=== PATIENT | female | born 1950 | race Caucasian/White ===

== ENCOUNTER 2017-04-09 08:58 | Emergency (ER) | payer MEDICARE, SELFPAY ==
[2017-04-09 08:59] VITALS: BP 176/100; PULSE 58; RESP 16; TEMP 36.3; O2SAT 95; BMI 27.4
--- NOTE | 2017-04-09 09:06 | RAD_ITS ---
STUDY: X-RAY - LEFT HAND, ATTENTION LEFT FINGER REASON FOR EXAM: Female, 66 years old. Injury to third finger 2 weeks ago. Painful TECHNIQUE: 3 view(s) of the finger were obtained. COMPARISON: None. FINDINGS: No definite evidence for an acute fracture seen. Overall alignment is satisfactory RAD/Finger(s) Min 2 Views IMPRESSION: No evidence for acute fractures Electronically Signed: Mayo Haile, at 9:34 EST Tel , Service support ,
--- NOTE | 2017-04-09 09:50 | ED.VISSUMM ---
- ER Visit Summary Date of Service: 04/09/17 Chief Complaint: [Injury to left middle finger] History of Present Illness: The patient is a 66 F [presents to the emergency department with an injury to her left middle finger that occurred 2 weeks ago. Vision states that she was putting her coat on when she was standing too close to a door jam and accidentally punched a door jam as her coat went on. Patient is right-hand dominant. Patient has been wearing an aluminum splint that she fashioned herself. Patient describes decreased range of motion and painful range of motion with the middle finger.] Physical Examination: [Left hand-patient has tenderness over the proximal phalanx of the middle finger. No obvious deformity. Patient is able to completely extend the digit against resistance. She has pain with flexion and has a difficult time touching her middle finger to her palm. There is no ecchymosis or bruising noted. She is neurovascular intact distally.] Test Results: [X-rays of the left long finger showed no fractures] Emergency Department Course and Treatment: [None] Treatment Plan: [Patient to continue with her aluminum splint for comfort and she will be referred to orthopedics for follow-up. Patient was given a prescription for 12 Adamant for severe pain.] Disposition: [Discharged to home in stable condition] Impression: [Contusion left long finger-cannot rule out ligamentous or soft tissue injury] This note was generated with [employer] dictation software. It may contain incorrect words, spelling, and punctuation that were not noted in review of the chart prior to signing ED Disposition - Plan for ED Patient: Chief Complaint: Upper Extremity Injury Referrals: NOT,DEFINED [Primary Care Provider] -
--- NOTE | 2017-04-09 09:52 | ED.DEP ---
ED Disposition - Plan for ED Patient: Chief Complaint: Upper Extremity Injury Instructions: ED Contusion Finger Prescriptions: Hydrocodone Bitart/Apap 5-325 [[place] 5/325] 1 - 2 tab PO Q4H PRN PRN 3 Days #12 tab PRN Reason: Pain Referrals: NOT,DEFINED [Primary Care Provider] - Keon Meadows MD [STAFF PHYSICIAN] - 5-7 Days
[2017-04-09 09:59] VITALS: BP 145/70; PULSE 52; RESP 15; O2SAT 98
== END 2017-04-09 10:00 | disposition home or self-care (01) ==
LOC: ED 09:58
PROVIDERS: Emergency Provider Emergency Medicine
DX: S60.032D Contusion of left middle finger without damage to nail, subsequent encounter (principal); W23.0XXD Caught, crushed, jammed, or pinched between moving objects, subsequent encounter
CPT/HCPCS: 73140; 99282

== ENCOUNTER 2019-04-04 11:34 | Emergency (ER) | payer MEDICARE, SELFPAY ==
[2019-04-04 11:36] VITALS: BP 137/73; PULSE 68; RESP 19; TEMP 36; O2SAT 99; BMI 30.9
[2019-04-04 11:38] VITALS: BP 137/73; PULSE 68; RESP 19; TEMP 36; O2SAT 99
--- NOTE | 2019-04-04 11:48 | CT_ITS ---
STUDY: CT ABDOMEN AND PELVIS WITH CONTRAST REASON FOR EXAM: Female, 68 years old. RUQ PAIN TODAY RADIATION DOSAGE (If Supplied By Facility): CTDIvol = ( 16.2 ) mGy, DLP = ( 1052.97 ) mGycm CLINICAL HISTORY: 68 years Female, RUQ PAIN TODAY COMPARISON: None TECHNIQUE: A CT scan of the abdomen and pelvis was performed with IV contrast contrast administration. Oral contrast was also administered. Coronal and sagittal reconstruction images were reviewed. This exam was performed according to our departmental dose-optimization program, which includes automated exposure control, adjustment of the mA and/or kV according to patient size and/or use of iterative reconstruction technique. FINDINGS: The lung bases and the base of the heart are normal. The liver is normal.The spleen is normal.The adrenal glands are normal.The head, body, and tail of the pancreas are normal. The right and left kidneys were examined and appear to be normal. Both ureters appear to be normal, and no obstructive uropathy is identified. The abdominal aortal is normal along its course and distribution. No paraortic lymphadenopathy is seen. No abdominal masses or lesions are seen. The patient has had a cholecystectomy. The CT scan of the pelvis was then reviewed. The common iliac vessels, external iliac vessels, and common femoral vessels are normal along their course and distribution No pelvis masses or lesions are seen. The appendix is normal. No pericecal inflammatory reaction is seen. Bone scanning windows of the lumbar spine and pelvis were reviewed in the coronal and sagittal planes and appear to be normal. CT/Abdomen/Pelvis WITH Contrast IMPRESSION: Normal CT scan of the abdomen and pelvis. Electronically Signed: Edgardo Gaming, at 14:01 EST Tel , Service support ,
--- NOTE | 2019-04-04 11:49 | EKG12_ITS ---
Test Reason : ABD PAIN Blood Pressure : / mmHG Vent. Rate : 063 BPM Atrial Rate : 063 BPM P-R Int : 152 ms QRS Dur : 084 ms QT Int : 436 ms P-R-T Axes : 046 009 011 degrees QTc Int : 446 ms Normal sinus rhythm Normal ECG Confirmed by MARCE OVIEDO, TIGRE ([id number]), order editor DASHAWN BYRD ([id number]) on 04/08/2019 8:50:43 AM Referred By: DRISS Confirmed By:IRVING ZHENG MD
--- NOTE | 2019-04-04 11:52 | ED.RN ---
NO OLD EKG
[2019-04-04] MEDS: 0.9% Normal Saline 1,000 ML 125 ML IV (11:59)
[2019-04-04] MEDS: Ondansetron 4 MG/2 ML Vial IV (12:00)
[2019-04-04 12:01] LABS: Absolute Lymphocyte Count 0.37 X10^3/uL (0.83-4.51); Absolute Neutrophil Count 5.9 X10^3/uL (2.0-7.7); Basophil# 0.02 X10^3/uL; Basophil% 0.3 % (0-1); Eosinophil# 0.05 X10^3/uL; Eosinophils% 0.8 % (0-5); Hematocrit 43.2 % (37-47); Lymphocyte # 0.37 X10^3/ul (4.0); Lymphocyte % 5.6 % (19-41); Mean Corp Hgb Conc 32.4 g/dL (32-36); Mean Corpuscular Hgb 30.4 pg (27.0-32.0); Mean Corpuscular Volume 93.9 fL (81-99); Mean Platelet Vol. 11.3 fl (6.2-12.0); NRBC Flagged by Analyzer 0 % (0-5); Neutrophil # 5.93 X10^3/uL (2.7-7.7); POSITIVE DIFFERENTIAL YES; Platelet Count 210 K/mm3 (150-450); RBC Distribution Width CV 12.7 % (11.6-14.6); RBC Distribution Width SD 43.8 fl (35.1-43.9); White Blood Count 6.6 K/mm3 (4.4-11.0)
[2019-04-04 12:08] LABS: Differential Indicated SCAN CRITERIA MET
[2019-04-04 12:19] LABS: AST(SGOT) 19 U/L (15-37); Alanine Aminotransfer ALT/SGPT 32 U/L (13-56); Albumin, Serum 3.6 g/dL (3.2-5.0); Alkaline Phosphatase 68 U/L (45-117); Anion Gap 6 (5-15); BUN 23 mg/dL (7-18); BUN/Creat Ratio 29.8 RATIO (10-20); Chloride 113 mmol/L (98-107); Creatinine, Serum 0.77 mg/dL (0.55-1.02); EST Glomerular Filtration Rate 79 mL/min (>60); Est Glom Filt Rate - Afr Amer 96 mL/min (>60); Estimated Creatinine Clearance 43.18 ml/min; Globulin 3.5 g/dL (2.2-4.2); Glucose 131 mg/dL (74-106); Lipase 31 U/L (73-393); Potassium 3.8 mmol/L (3.5-5.1); Protein, Total 7.1 g/dL (6.4-8.2); Sodium Level 142 mmol/L (136-145)
[2019-04-04 12:40] LABS: Differential Comment SCANNED
[2019-04-04 12:45] LABS: Lactic Acid 0.8 mmol/L (0.4-1.9)
[2019-04-04 13:41] LABS: Mucous, Urine 0 SEEN /hpf (<or=2+); Red Blood Cells-Urine 0 SEEN /hpf (0-5); Squamous Epithelial Cells - UA 0 SEEN /hpf (5-10)
[2019-04-04 13:48] LABS: Glucose, Dipstick Normal (Normal); Ketone-Dipstick 5 mg/dl (Negative); Leukocyte Esterase-Dipstick 100 /ul (Negative); Nitrite-Dipstick Positive (Negative); Occult Blood-Urine 25 /ul (Negative); Protein-Dipstick Negative (Negative); Urine Bilirubin Dipstick Negative (Negative); Urine Urobilinogen Normal (Normal)
[2019-04-04 13:50] LABS: Color, Urine YELLOW (Yellow); Urine Clarity Cloudy (Clear)
[2019-04-04 14:32] LABS: Bacteria 2+ /hpf (None Seen); White Blood Cells 0-5 SEEN /hpf (0-5)
[2019-04-04 14:38] VITALS: BP 132/63; PULSE 72; RESP 16; TEMP 37.3; O2SAT 96
--- NOTE | 2019-04-04 14:46 | ED.VISSUMM ---
- ER Visit Summary Date of Service: 04/04/19 Chief Complaint: [Abdominal pain as well as nausea and vomiting] History of Present Illness: The patient is a 68 F [presents to the emergency department with symptoms since 4 AM today. Patient woke up with abdominal discomfort and vomited 3 times. Patient states she is also had blood in her stool for about a month that seems to be improving. She believes is from the fissure as she has had this problem before. Patient also states that she has had increased stress of late. Patient was seen in urgent care today and refused to the ER. Patient does complain of a little bit of a headache today. She denies any body aches. She denies any diarrhea. Patient does have prior history of colitis. Patient's had prior cholecystectomy. She denies any cough or sore throat.] Physical Examination: [HEENT-PERRLA, EOMI. Cranial nerves II through XII grossly intact. TMs clear. Mucous membranes moist. No adenopathy. Cardiovascular-regular rate and rhythm without murmur or ectopy Lungs-clear to auscultation, chest wall stable without crepitus or subcu emphysema Abdomen-normoactive bowel sounds, soft. Patient has tenderness over the epigastric region with some guarding. There is no rebound, rigidity, or peritoneal signs. Extremities-intact ?4, normal range of motion, normal pulses, atraumatic] Test Results: [CBC with differential obtained showed a white blood cell count of 6.6, hemoglobin 14, hematocrit 43, platelets 210. Chemistries unremarkable. LFTs were normal. Lipase was normal at 31. Urine was positive for leukocyte Estrace 100 and positive for nitrites as well as 0-5 WBCs and +2 bacteria. Troponin was less than 0.015.] Emergency Department Course and Treatment: [Patient was given a liter mostly fluid bolus. Patient was treated with Zofran 4 mg IV. He has had no further vomiting.] Treatment Plan: [We will be given a prescription for Zofran. Patient advised to follow-up with primary care physician 3 to 5 days. Patient to return if persistent vomiting, worsening abdominal pain, or condition should worsen anyway.] Disposition: [Discharged home in stable condition] Impression: [Abdominal pain-etiology uncertain Vomiting-suspect viral etiology] This note was generated with [employer] software. It may contain incorrect words, spelling, and punctuation that were not noted in review of the chart prior to signing ED Disposition - Plan for ED Patient: Referrals: Care Physician,No Primary [Primary Care Provider] -
--- NOTE | 2019-04-04 14:49 | DCINST.ED_ITS ---
ED Disposition - Plan for ED Patient: Instructions: ABDOMINAL PAIN, Unknown Cause, (Female) Prescriptions: Ondansetron [Zofran Odt] 4 mg PO Q8H PRN PRN #10 tab PRN Reason: Nausea Transmission Status: Pending to [facility] [place] Referrals: Care Physician,No Primary [Primary Care Provider] - Tammi Matias MD [STAFF PHYSICIAN] - 3-5 Days suture removal
== END 2019-04-04 15:05 | disposition home or self-care (01) ==
PROVIDERS: Emergency Provider Emergency Medicine
DX: R10.9 Unspecified abdominal pain (principal); R11.2 Nausea with vomiting, unspecified; Z90.49 Acquired absence of other specified parts of digestive tract; R51 Headache
CPT/HCPCS: 74177; 80053; 81001; 83605; 83690; 84484; 85025; 87086; 87088; 87186; 93005; 96361; 96374; 99283; J7030; Q9967; A4216; J2405